=== PATIENT | female | born 1980 | race Caucasian/White ===

== ENCOUNTER 2020-04-27 05:30 | Day surgery (SDC) | payer OTHER ==
[2020-04-23 15:35] LABS: BASOPHILS 0.1 % (0-2); EOSINOPHILS 0.3 % (0-7); HEMATOCRIT 40.2 % (36.0-48.0); IMMATURE GRANULOCYTES 0.2 % (0-5); LYMPHOCYTES 29.8 % (15-50); MCH 31.5 pg (26.0-34.0); MCHC 32.3 g/dL (31.0-37.0); MCV 97.3 fL (80.0-100.0); MEAN PLATELET VOLUME 10.3 fL (7.4-10.4); MONOCYTES 4.7 % (2-11); NEUTROPHILS 64.9 % (40-80); PLATELET COUNT 318 10x3/uL (130-400); RBC 4.13 10x6/uL (4.00-5.40); RDW 13.8 % (11.5-14.5)
[2020-04-23 15:47] LABS: UDS - AMPHET NEGATIVE QUAL (NEGATIVE); UDS - BARB NEGATIVE QUAL (NEGATIVE); UDS - BENZO NEGATIVE QUAL (NEGATIVE); UDS - COCAINE NEGATIVE QUAL (NEGATIVE); UDS - OPIATE NEGATIVE QUAL (NEGATIVE); UDS - PCP NEGATIVE QUAL (NEGATIVE); UDS - THC NEGATIVE QUAL (NEGATIVE)
[~2020-04-27] VITALS: Ht 157.5 cm; Wt 87.1 kg
[~2020-04-27 05:30] MED LIST: AYGESTIN5 MG PO; LISINOPRIL20 MG PO; METFORMIN HCL500 M1 PO; OMEPRAZOLE20 M1 PO; PRENAVITE1 TAB PO; PROZAC20 MG PO; VITAMIN B-121000 MCG PO
[2020-04-27 06:11] VITALS: BP 116/75; Ht 157.5 cm; Wt 87.1 kg
[2020-04-27 06:24] LABS: HCG URINE NEGATIVE (NEGATIVE)
--- NOTE | 2020-04-27 08:47 | NUR ---
0755 OPA DISCONTINUED. PATIENT AROUSABLE AND MAINTAINING PATENT AIRWAY
--- NOTE | 2020-04-27 09:24 | NUR ---
DC INSTRUCTIONS GIVEN TO PT. STATES UNDERSTANDING. DC'D IV CATH FULLY INTACT.
--- NOTE | 2020-04-27 09:34 | NUR ---
PT VOIDED. PT LEFT UNIT VIA WC AT [id number]
--- NOTE | 2020-05-20 09:14 | OP ---
PATIENT NAME: JAKE RIZZO MEDICAL RECORD: [id number] :80 LOCATION:[facility] ADMISSION DATE: SURGEON: TEJINDER DAN MD DATE OF OPERATION: 04/27/2020 PREOPERATIVE DIAGNOSIS: Pelvic pain. POSTOPERATIVE DIAGNOSES: 1. Pelvic pain. 2. Suspect adenomyosis. SURGEON: Tejinder Dan MD [employer]: Eric oCreas. ANESTHESIOLOGIST: Dr. Flores ANESTHETIC: General. FINDINGS: Uterus is enlarged and boggy. Tubes are unremarkable bilaterally. Ovaries with smooth capsule. What was visualized of the abdominal anatomy was unremarkable. SPECIMENS REMOVED: None applicable. ESTIMATED BLOOD LOSS: Minimal. FLUIDS: 900 cc lactated Ringer's. URINE OUTPUT: Quantity sufficient void prior to this procedure. COMPLICATIONS: None. DRAINS: None. INDICATIONS: The patient is a 56-year-old female with a history of dysmenorrhea and pelvic pain. The patient is consented for diagnostic laparoscopy and any indicated procedure. DESCRIPTION OF PROCEDURE: After informed consent was assured, the patient was taken to the operating room where anesthetic was obtained without difficulty. The patient was not prepped and draped in usual sterile fashion. The patient now has an incision made at the umbilicus to accommodate a 5-mm trocar. This was inserted without difficulty. A pneumoperitoneum was developed. Accessory trocars were placed 2 fingerbreadths above the symphysis. Through this, a blunt probe was inserted and with the patient in steep Trendelenburg position, the bowel swept free of the pelvis. Uterus was inspected and found to be slightly enlarged and boggy. The tubes are unremarkable. Both ovaries have a smooth capsule. The cul-de-sac and ovarian fossa was inspected closely without obvious evidence of endometriosis. The vesicouterine pouch was also visualized with no abnormality seen. The upper anatomy was viewed with unremarkable findings. Pneumoperitoneum was released as the accessory trocars were removed. The primary trocar was now removed and all sites closed with subcuticular stitch. Sponge, lap, and needle counts correct times 2. The patient went to the recovery area in stable condition. OPERATIVE REPORT [id number] JAKE RIZZO TRANSINT:[id number] Voice Confirmation ID: [id number] DOCUMENT ID: [id number] TEJINDER DAN MD at 0914 CC: [id number] DICTATION DATE: 04/27/20 0745 HEALTH EVALUATOR: 04/27/20 1615 [facility] 04/27/20 [facility] [address] [place], [id number]
== END 2020-04-27 09:26 | disposition home or self-care (01) ==
LOC: D.OPS 05:30 → D.PAN 07:00 → D.OPS 09:26
PROVIDERS: ATTEND Obstetrics & Gynecology
DX: N94.5 Secondary dysmenorrhea (principal); N93.9 Abnormal uterine and vaginal bleeding, unspecified; E11.9 Type 2 diabetes mellitus without complications; Z79.84 Long term (current) use of oral hypoglycemic drugs